=== PATIENT | male | born 2005 | race Caucasian/White ===

== ENCOUNTER 2025-03-23 10:15 | Emergency (ER) | payer MEDICAID ==
[~2025-03-23] VITALS: Ht 190.5 cm; Wt 72.0 kg
[2025-03-23 10:20] VITALS: O2SAT 99
[2025-03-23] MEDS: ACETAMINOPHEN 500MG TABLET PO ONE (12:51)
[2025-03-23 13:12] LABS: BASOPHILS % 0.2 % (0.0-2.0); EOSINOPHILS % 1.3 % (0.0-5.0); HEMATOCRIT. 43.5 % (42.0-52.0); HEMOGLOBIN. 14.7 g/dL (14.0-18.0); LYMPHOCYTES % 27.9 % (20.0-50.0); MEAN CORPUSCULAR HGB CONC 33.8 g/dL (31.0-37.0); MEAN CORPUSCULAR VOLUME 91.7 fL (80.0-94.0); MEAN PLATELET VOLUME 8.3 fl (7.4-10.4); MONOCYTES % 10.2 % (2.0-8.0); NEUTROPHILS % 60.4 % (40.0-76.0); PLATELET 244 x1000/uL (130-400); RED BLOOD CELL COUNT 4.74 mill/uL (4.7-6.1); WHITE BLOOD COUNT 5.6 x1000/uL (4.5-11.0)
[2025-03-23 13:20] LABS: CHLORIDE 105 mEq/L (98-107); POTASSIUM 3.8 mEq/L (3.5-5.1); SODIUM 141 mEq/L (136-145)
[2025-03-23 13:21] LABS: CALCIUM 10.5 mg/dL (8.7-10.4); CARBON DIOXIDE 26 mEq/L (21-32)
[2025-03-23 13:22] LABS: INR 1.1; PROTHROMBIN TIME 12.1 sec (9.6-11.0)
[2025-03-23 13:26] LABS: CREATININE 0.9 mg/dL (0.6-1.3); GLUCOSE 97 mg/dL (70-105); UREA NITROGEN BLOOD 8 mg/dL (9-23)
[2025-03-23 13:27] LABS: ETHANOL BLOOD < 10 mg/dL (<10)
[2025-03-23 13:29] LABS: AMMONIA < 17 uMol/L (<32)
[2025-03-23 15:51] LABS: ALANINE AMINOTRANSFERASE 23 IU/L (10-49); ALBUMIN 4.9 g/dL (3.2-4.8); ASPARTATE AMINOTRANSFERASE 41 IU/L (<34); BILIRUBIN DIRECT 0.3 mg/dL (<=3.0); PROTEIN TOTAL 8.4 g/dL (6.0-8.3)
[2025-03-23] MEDS: KETOROLAC 30MG/ML VIAL IM ONE (19:03)
[2025-03-23 19:31] LABS: MONOTEST NEGATIVE (NEGATIVE)
[2025-03-23 20:57] LABS: CLARITY URINE CLEAR (CLEAR); COLOR URINE YELLOW (YELLOW); GLUCOSE URINE NEGATIVE (NEGATIVE); KETONES URINE 2+ (NEGATIVE); LEUKOCYTE ESTERASE URINE NEGATIVE (NEGATIVE); NITRITE URINE NEGATIVE (NEGATIVE); OCCULT BLOOD URINE NEGATIVE (NEGATIVE); PROTEIN URINE NEGATIVE (NEGATIVE); SPECIFIC GRAVITY URINE 1.046 (1.005-1.030)
[2025-03-23 21:11] LABS: *AMPHETAMINES SCREEN URINE NEGATIVE (NEGATIVE); *BARBITURATES SCREEN URINE NEGATIVE (NEGATIVE); *BENZODIAZEPINES SCREEN URINE NEGATIVE (NEGATIVE); *COCAINE SCREEN URINE NEGATIVE (NEGATIVE); METHADONE URINE SCREEN NEGATIVE (NEGATIVE)
[2025-03-23 21:12] LABS: CANNABINOID URINE SCREEN NEGATIVE (NEGATIVE); ECSTASY MDMA SCREEN URINE NEGATIVE (NEGATIVE); OPIATES URINE SCREEN NEGATIVE (NEGATIVE); PHENCYCLIDINE URINE SCREEN NEGATIVE (NEGATIVE)
[2025-03-24] MEDS: DIPHENHYDRAMINE 12.5MG/5ML UDC PO ONE (02:50)
[2025-03-24 12:50] VITALS: BP 139/84; PULSE 82; RESP 16; TEMP 36.6; O2SAT 99
[2025-03-24] MEDS: HALOPERIDOL LACTATE 5MG/ML VIAL IM ONE (13:05)
== END 2025-03-24 17:16 ==
LOC: ER 10:15
DX: R45.851 Suicidal ideations (principal); R51.9 Headache, unspecified; R07.0 Pain in throat; Z20.822 Contact with and (suspected) exposure to COVID-19
CPT/HCPCS: 80076; 80305; 80048; 81003; 80320; 82140; 87430; 83690; 85025; 85610; 86308; 87070; 36415; 70450; 70491; 96372 ×2; 99285; 87426; J1885; Q0163; J1630; Z7610; G0480

== ENCOUNTER 2025-06-01 15:42 | Emergency (ER) | payer MEDICAID ==
[~2025-06-01] VITALS: Ht 188 cm; Wt 85.0 kg
[2025-06-01 15:52] VITALS: O2SAT 100
[2025-06-01] MEDS ORDERED: DIPHENHYDRAMINE 50MG CAPSULE PO ONE (17:45)
[2025-06-01] MEDS ORDERED: DIPHENHYDRAMINE 25MG CAPSULE PO NR (17:45)
[2025-06-01] MEDS: SUMATRIPTAN SUCCINATE 25MG TABLET PO ONE (18:56)
[2025-06-01] MEDS: KETOROLAC 30MG/ML VIAL IM ONE (18:56)
[2025-06-01] MEDS: DEXAMETHASONE 4MG TABLET PO ONE (18:56)
[2025-06-01] MEDS: DIPHENHYDRAMINE 25MG CAPSULE PO NR (18:56)
[2025-06-01] MEDS: PROCHLORPERAZINE MALEATE 10MG TABLET PO ONE (19:13)
[2025-06-01] MEDS ORDERED: KETO10TA2 MT (20:30)
[2025-06-01] MEDS ORDERED: PROC-27 MT (20:30)
[2025-06-01] MEDS ORDERED: SUMA100T16 MT (20:30)
[2025-06-01] MEDS ORDERED: SUMA11AE2 BOTHNSTRLS (20:30)
[2025-06-01] MEDS: SUMATRIPTAN SUCCINATE 6MG/0.5ML VIAL SUBCUT ONE (20:55)
[2025-06-01 21:31] VITALS: BP 156/92; PULSE 84; RESP 15; TEMP 36.6; O2SAT 100
== END 2025-06-01 21:33 | disposition home or self-care (01) ==
LOC: ER 15:42
DX: G43.909 Migraine, unspecified, not intractable, without status migrainosus (principal); F19.90 Other psychoactive substance use, unspecified, uncomplicated; Z79.899 Other long term (current) drug therapy
CPT/HCPCS: 96372; 99284; J8540; Q0163; Q0164; J1885; J3030; Z7610